=== PATIENT | female | born 1995 | race Caucasian/White ===

== ENCOUNTER 2021-09-19 02:25 | Emergency (ER) | payer OTHER ==
[~2021-09-19] VITALS: Ht 157.5 cm; Wt 68.1 kg
[2021-09-19 02:37] VITALS: BP 141/84
[2021-09-19] MEDS ORDERED: LIDOCAINE HCL/EPINEPHRINE 1%-EPI 1:100,000 20 ML VIAL INFIL ONE (05:15)
[2021-09-19] MEDS ORDERED: BACITRACIN ZINC OINT UDPKT TOP ONE (05:15)
== END 2021-09-19 06:53 | disposition home or self-care (01) ==
LOC: ER 02:25
DX: L72.0 Epidermal cyst (principal)
CPT/HCPCS: 10060; 99282; J3490